=== PATIENT | male | born 1965 | race Caucasian/White ===

== ENCOUNTER 2021-05-18 11:56 | Emergency (ER) | payer MEDICARE, BC ==
[~2021-05-18] VITALS: Ht 177.8 cm; Wt 72.7 kg
[2021-05-18 12:44] LABS: BASOPHILS % (AUTO) 0.3 % (0-1); EOSINOPHILS % (AUTO) 0.1 % (0-6); HEMATOCRIT 36.8 % (42.0-52.0); HEMOGLOBIN 11.9 g/dl (14.0-17.9); LYMPHOCYTES # (AUTO) 1.3 X10'3 (1.1-4.8); MEAN CORPUSCULAR HEMOGLOBIN 28.8 PG (27.0-31.0); MEAN CORPUSCULAR HGB CONC 32.4 g/dL (33.0-36.5); MEAN CORPUSCULAR VOLUME 89.1 FL (78-98); MEAN PLATELET VOLUME 8.1 FL (7.4-10.4); MONOCYTES # (AUTO) 1.4 X10'3 (0-0.9); MONOCYTES % (AUTO) 11.5 % (2-12); NEUTROPHILS # (AUTO) 9.1 X10'3 (1.8-7.7); NEUTROPHILS % (AUTO) 77.1 % (42-75); PLATELET COUNT 166 X10'3 (140-440); RED BLOOD COUNT 4.13 X10'6 (4.70-6.10); RED CELL DISTRIBUTION WIDTH 15.6 % (11.5-14.5); WHITE BLOOD COUNT 11.8 X10'3 (4.5-11.0)
[2021-05-18 13:01] LABS: ALANINE AMINOTRANSFERASE 25 U/L (12-78); ALBUMIN 3.1 G/DL (3.4-5.0); ALBUMIN/GLOBULIN RATIO 0.8 (1.1-1.5); ALKALINE PHOSPHATASE 62 IU/L (46-116); ANION GAP 6 (8-16); ASPARTATE AMINO TRANSFERASE 27 U/L (10-37); BILIRUBIN,TOTAL 0.5 MG/DL (0.1-1.0); BLOOD UREA NITROGEN 12 MG/DL (7-18); BUN/CREATININE RATIO 22.2 (5.4-32.0); CALCIUM 8.4 MG/DL (8.5-10.1); CHLORIDE 101 MMOL/L (99-107); CREATININE 0.54 MG/DL (0.60-1.10); GLUCOSE 109 MG/DL (70-104); POTASSIUM 3.8 MMOL/L (3.5-5.1); SODIUM 140 MMOL/L (135-145); TOTAL CARBON DIOXIDE 33.2 MMOL/L (24-32); TOTAL PROTEIN 6.8 G/DL (6.4-8.2); eGFR > 90 ML/MIN
--- NOTE | 2021-05-18 13:48 | NUR ---
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
[2021-05-18] MEDS ORDERED: CefTRIAXone 1000mg IM Kit (w/lidocaine diluent) IM ONE (14:05)
[2021-05-18] MEDS ORDERED: CEFD300C3 PO (14:10)
[2021-05-18 15:01] LABS: CLARITY,URINE CLEAR (Clear); COLOR,URINE YELLOW (Yellow); GLUCOSE, URINE NEGATIVE (Neg); KETONES,URINE NEGATIVE (Neg); LEUKOCYTE ESTERASE ,URINE MODERATE (Neg); NITRITES, URINE NEGATIVE (Neg); OCCULT BLOOD,URINE LARGE (Neg); PROTEIN,URINE NEGATIVE (Neg); UROBILINOGEN,URINE 0.2 E.U/dL (0.2-1.0)
[2021-05-18 15:12] LABS: UA COLLECTION TYPE FOLEY CATH
[2021-05-18 15:13] LABS: BACTERIA,URINE FEW /HPF (Neg); MUCUS STRANDS NONE SEEN /LPF (Neg); RBC,URINE NONE SEEN /HPF (0-2); SQUAMOUS EPITHELIAL CELL,UR FEW /LPF (FEW)
--- NOTE | 2021-05-18 16:50 | NUR ---
report called to accepting facility
[2021-05-18 16:52] VITALS: BP 146/87
[2021-05-18] MEDS ORDERED: acetaminophen 325mg tablet PO ONE (17:20)
--- NOTE | 2021-05-18 18:21 | NUR ---
UPDATED [facility] WITH TRANSFER STATUS
[2021-05-18] MEDS ORDERED: CEPH-585 PO (19:20)
--- NOTE | 2021-05-18 19:30 | NUR ---
SPOKE WITH FAMILY MEMBER REGARDING PT TRANSPORT, NOTIFIED THEM THAT PT'S TRANSFER WAS CONSIDERED NON-EMERGENT, PER [facility], THAT TRANSPORT WOULD REQUIRE PRIOR AUTHORIZATION BY THE INSURANCE COMPANY WHICH WOULD NOT BE ABLE TO BE DONE UNTIL FRIDAY OR FRIDAY. PT'S TO SPEAK WITH SOMEONE AND DECIDE ON A POSSIBLE DIFFERENT MODE OF TRANSPORTATION FOR PT, UPSET
--- NOTE | 2021-05-18 20:50 | NUR ---
PT DISCHARGED, [facility] WAS CALLED [facility] [address]
== END 2021-05-18 20:40 | disposition home or self-care (01) ==
LOC: ER 11:56
DX: T83.511A Infection and inflammatory reaction due to indwelling urethral catheter, initial encounter (principal); Z20.822 Contact with and (suspected) exposure to COVID-19; N39.0 Urinary tract infection, site not specified; G90.4 Autonomic dysreflexia; Z88.2 Allergy status to sulfonamides; Z79.2 Long term (current) use of antibiotics; Z79.899 Other long term (current) drug therapy; Y92.89 Other specified places as the place of occurrence of the external cause
CPT/HCPCS: 36415; 71045; 80053; 81001; 83605; 84145; 85025; 87040; 87077; 87088; 87186; 87635; 96372; 99285; C9803; J0696